=== PATIENT | male | born 1965 | race Caucasian/White ===

== ENCOUNTER 2017-12-27 08:57 | Day surgery (SDC) | payer MEDICAID ==
[~2017-12-27 08:57] MED LIST: METO-395 PO; ZOLP10TA5 PO
== END 2017-12-27 11:07 | disposition home or self-care (01) ==
LOC: WOUND CARE 08:57
PROVIDERS: ATTEND Surgery
DX: L97.512 Non-pressure chronic ulcer of other part of right foot with fat layer exposed (principal); G62.9 Polyneuropathy, unspecified; F41.9 Anxiety disorder, unspecified; I10 Essential (primary) hypertension; E78.5 Hyperlipidemia, unspecified; F32.9 Major depressive disorder, single episode, unspecified; Z72.89 Other problems related to lifestyle; Z89.411 Acquired absence of right great toe
CPT/HCPCS: 11042; 87070; 87075; 87077; 87102; 87186; A6021; A6206; A6209; A6446; L3260

== ENCOUNTER 2018-01-03 09:52 | Day surgery (SDC) | payer MEDICAID ==
[~2018-01-03 09:52] MED LIST changes: -ZOLP10TA5 PO
[2018-01-03] MEDS ORDERED: LIDOcaine/PRILOcaine 5gm cream TP ONE (10:34)
== END 2018-01-03 12:36 | disposition home or self-care (01) ==
LOC: WOUND CARE 09:52
PROVIDERS: ATTEND Surgery
DX: L97.512 Non-pressure chronic ulcer of other part of right foot with fat layer exposed (principal); G62.9 Polyneuropathy, unspecified; F41.9 Anxiety disorder, unspecified; I10 Essential (primary) hypertension; E78.5 Hyperlipidemia, unspecified; F32.9 Major depressive disorder, single episode, unspecified; Z89.411 Acquired absence of right great toe
CPT/HCPCS: 11043; A6021; A6206; A6209; A6446

== ENCOUNTER 2018-01-08 09:54 | Day surgery (SDC) | payer MEDICAID ==
[2018-01-08] MEDS ORDERED: LIDOcaine/PRILOcaine 5gm cream TP ONE (11:12)
[2018-01-08] MEDS ORDERED: ACET-1059 PO (12:52)
[2018-01-08] MEDS ORDERED: CLIN150C2 PO (12:52)
== END 2018-01-08 12:33 | disposition home or self-care (01) ==
LOC: WOUND CARE 09:54
PROVIDERS: ATTEND Surgery
DX: L97.513 Non-pressure chronic ulcer of other part of right foot with necrosis of muscle (principal); G62.9 Polyneuropathy, unspecified; F41.9 Anxiety disorder, unspecified; I10 Essential (primary) hypertension; E78.5 Hyperlipidemia, unspecified; F32.9 Major depressive disorder, single episode, unspecified; Z89.411 Acquired absence of right great toe
CPT/HCPCS: 11043; A6206; A6209; A6446

== ENCOUNTER 2018-01-11 08:55 | Day surgery (SDC) | payer MEDICAID ==
[~2018-01-11 08:55] MED LIST changes: +ACET-1059 PO; +CLIN150C2 PO
[2018-01-11] MEDS ORDERED: LIDOcaine/PRILOcaine 5gm cream TP ONE (10:52)
== END 2018-01-11 12:29 | disposition home or self-care (01) ==
LOC: NM 08:55
PROVIDERS: ATTEND Surgery
DX: L97.513 Non-pressure chronic ulcer of other part of right foot with necrosis of muscle (principal); G62.9 Polyneuropathy, unspecified; I10 Essential (primary) hypertension; E78.5 Hyperlipidemia, unspecified; F41.9 Anxiety disorder, unspecified; F32.9 Major depressive disorder, single episode, unspecified; Z89.411 Acquired absence of right great toe
CPT/HCPCS: 11042; A6021; A6206; A6209; A6446

== ENCOUNTER 2018-01-15 09:50 | Day surgery (SDC) | payer MEDICAID | END 2018-01-15 13:05 | disposition home or self-care (01) | LOC: WOUND CARE 09:50 | PROVIDERS: ATTEND Surgery | DX: L97.513 Non-pressure chronic ulcer of other part of right foot with necrosis of muscle (principal); G62.9 Polyneuropathy, unspecified; F41.9 Anxiety disorder, unspecified; I10 Essential (primary) hypertension; E78.5 Hyperlipidemia, unspecified; F32.9 Major depressive disorder, single episode, unspecified; Z89.411 Acquired absence of right great toe | CPT/HCPCS: 11042; A6206; A6212; A6446 ==

== ENCOUNTER 2018-01-18 09:54 | Day surgery (SDC) | payer MEDICAID | END 2018-01-18 12:04 | disposition home or self-care (01) | LOC: WOUND CARE 09:54 | PROVIDERS: ATTEND Surgery | DX: L97.513 Non-pressure chronic ulcer of other part of right foot with necrosis of muscle (principal); G62.9 Polyneuropathy, unspecified; F41.9 Anxiety disorder, unspecified; I10 Essential (primary) hypertension; E78.5 Hyperlipidemia, unspecified; F32.9 Major depressive disorder, single episode, unspecified; Z89.411 Acquired absence of right great toe | CPT/HCPCS: 11044; A6021; A6206; A6209; A6446 ==

== ENCOUNTER 2018-01-23 09:54 | Day surgery (SDC) | payer MEDICAID ==
[~2018-01-23 09:54] MED LIST changes: -CLIN150C2 PO
[2018-01-23] MEDS ORDERED: LIDOcaine/PRILOcaine 5gm cream TP ONE (11:11)
== END 2018-01-23 12:48 | disposition home or self-care (01) ==
LOC: WOUND CARE 09:54
PROVIDERS: ATTEND Surgery
DX: L97.513 Non-pressure chronic ulcer of other part of right foot with necrosis of muscle (principal); G62.9 Polyneuropathy, unspecified; F41.9 Anxiety disorder, unspecified; I10 Essential (primary) hypertension; E78.5 Hyperlipidemia, unspecified; F32.9 Major depressive disorder, single episode, unspecified; Z89.411 Acquired absence of right great toe
CPT/HCPCS: 11042; 73630; A6021; A6206; A6209; A6446

== ENCOUNTER 2018-02-02 08:45 | Outpatient (CLI) | payer MEDICAID | END 2018-02-02 10:40 | disposition home or self-care (01) | LOC: WOUND CARE 08:45 → EDSTATUS 09:30 → WOUND CARE 10:40 | PROVIDERS: ATTEND Surgery | DX: L97.513 Non-pressure chronic ulcer of other part of right foot with necrosis of muscle (principal); G62.9 Polyneuropathy, unspecified; I10 Essential (primary) hypertension; E78.5 Hyperlipidemia, unspecified; F41.9 Anxiety disorder, unspecified; F32.9 Major depressive disorder, single episode, unspecified; Z89.411 Acquired absence of right great toe | CPT/HCPCS: 99211; A6209; A6021; A6206; A6446 ==

== ENCOUNTER 2018-02-09 09:15 | Day surgery (SDC) | payer MEDICAID ==
[2018-02-09] MEDS ORDERED: LIDOcaine/PRILOcaine 5gm cream TP ONE (09:46)
== END 2018-02-09 10:29 | disposition home or self-care (01) ==
LOC: WOUND CARE 09:15
PROVIDERS: ATTEND Surgery
DX: L97.513 Non-pressure chronic ulcer of other part of right foot with necrosis of muscle (principal); G62.9 Polyneuropathy, unspecified; I10 Essential (primary) hypertension; E78.5 Hyperlipidemia, unspecified; F41.9 Anxiety disorder, unspecified; F32.9 Major depressive disorder, single episode, unspecified; Z89.411 Acquired absence of right great toe
CPT/HCPCS: A6021; A6206; A6446

== ENCOUNTER 2018-02-16 09:27 | Day surgery (SDC) | payer MEDICAID ==
[2018-02-16] MEDS ORDERED: LIDOcaine/PRILOcaine 5gm cream TP ONE (10:08)
== END 2018-02-16 10:53 | disposition home or self-care (01) ==
LOC: WOUND CARE 09:27
PROVIDERS: ATTEND Surgery
DX: L97.513 Non-pressure chronic ulcer of other part of right foot with necrosis of muscle (principal); G62.9 Polyneuropathy, unspecified; I10 Essential (primary) hypertension; E78.5 Hyperlipidemia, unspecified; F41.9 Anxiety disorder, unspecified; F32.9 Major depressive disorder, single episode, unspecified; Z89.411 Acquired absence of right great toe
CPT/HCPCS: 15275; A6209; A6222; Q4131; 17250; 97597; A6250; A6446

== ENCOUNTER 2018-02-21 09:10 | Outpatient (CLI) | payer MEDICAID | END 2018-02-21 10:15 | disposition home or self-care (01) | LOC: WOUND CARE 09:10 → EDSTATUS 09:30 → WOUND CARE 10:15 | PROVIDERS: ATTEND Surgery | DX: L97.513 Non-pressure chronic ulcer of other part of right foot with necrosis of muscle (principal); G62.9 Polyneuropathy, unspecified; I10 Essential (primary) hypertension; E78.5 Hyperlipidemia, unspecified; F41.9 Anxiety disorder, unspecified; F32.9 Major depressive disorder, single episode, unspecified; Z89.411 Acquired absence of right great toe | CPT/HCPCS: 99215; A6209; A6222; A6446 ==

== ENCOUNTER 2018-02-28 09:25 | Day surgery (SDC) | payer MEDICAID ==
[2018-02-28] MEDS ORDERED: LIDOcaine/PRILOcaine 5gm cream TP ONE (09:59)
== END 2018-02-28 11:45 | disposition home or self-care (01) ==
LOC: WOUND CARE 09:25
PROVIDERS: ATTEND Surgery
DX: L97.513 Non-pressure chronic ulcer of other part of right foot with necrosis of muscle (principal); G62.9 Polyneuropathy, unspecified; I10 Essential (primary) hypertension; E78.5 Hyperlipidemia, unspecified; F41.9 Anxiety disorder, unspecified; F32.9 Major depressive disorder, single episode, unspecified; Z89.411 Acquired absence of right great toe
CPT/HCPCS: 15275; A6209; A6222; Q4131; A6250; A6446

== ENCOUNTER 2018-03-07 09:18 | Day surgery (SDC) | payer MEDICAID ==
[2018-03-07] MEDS ORDERED: LIDOcaine/PRILOcaine 5gm cream TP ONE (10:41)
--- NOTE | 2018-03-07 12:33 | NUR ---
Patient ambulated safely into [facility]. Patient admitted to outpatient wound care clinic for follow-up visit with physician. Dressing removed, wound cleansed and Emla cream applied per order. Patient assessed for changes in conditions, medications and medical history. Patient showed no s/s of distress at time of assessment. 1050- at bedside accompanied by RN. Wound assessed and debrided with a curette. Minimal bleeding noted. Hemostasis achieved with applied pressure. Patient tolerated procedure well. Dr. Gabriel applied an Epicord to wound. Dressings applied per physician orders. Patient instructed on the signs and symptoms of infection and to call the Wound Center if any occur or to go to the ED if we are closed: Increased pain in wound Increase in drainage from the wound Redness in the skin surrounding the wound Bleeding from the wound Temperature of 101 or greater Patient instructed that the weight of their body puts a large amount of pressure on their wounds. This pressure keeps the new tissue from growing and inhibits new blood vessels from forming. Explained that, if they continue to bear weight on a body part that has a wound, the time it takes to heal the wound increases, the wound may get worse or the wound may not heal at all. Patient verbalized understanding of all instructions and POC. Patient instructed to return to wound care clinic for scheduled follow-up appointment with physician. Patient left in stable condition with no complaints. Addendum: 03/07/18 at 1236 by Rachael Hamm RN Amended: Links added.
[2018-05-14] MEDS ORDERED: METO-384 PO (10:35)
== END 2018-03-07 11:26 | disposition home or self-care (01) ==
LOC: WOUND CARE 09:18
PROVIDERS: ATTEND Surgery
DX: L97.513 Non-pressure chronic ulcer of other part of right foot with necrosis of muscle (principal); G62.9 Polyneuropathy, unspecified; I10 Essential (primary) hypertension; E78.5 Hyperlipidemia, unspecified; F41.9 Anxiety disorder, unspecified; F32.9 Major depressive disorder, single episode, unspecified; Z89.411 Acquired absence of right great toe
CPT/HCPCS: 15275; A6209; A6222; Q4131; A6250; A6446

== ENCOUNTER 2018-03-16 09:05 | Outpatient (CLI) | payer MEDICAID | END 2018-03-16 10:09 | disposition home or self-care (01) | LOC: WOUND CARE 09:05 → EDSTATUS 09:30 → WOUND CARE 10:09 | PROVIDERS: ATTEND Surgery | DX: L97.513 Non-pressure chronic ulcer of other part of right foot with necrosis of muscle (principal); G62.9 Polyneuropathy, unspecified; I10 Essential (primary) hypertension; E78.5 Hyperlipidemia, unspecified; F41.9 Anxiety disorder, unspecified; F32.9 Major depressive disorder, single episode, unspecified; Z89.411 Acquired absence of right great toe | CPT/HCPCS: 99211; A6209; A6222; A6446; G0463 ==

== ENCOUNTER 2018-03-22 09:08 | Day surgery (SDC) | payer MEDICAID | END 2018-03-22 11:47 | disposition home or self-care (01) | LOC: WOUND CARE 09:08 | PROVIDERS: ATTEND Surgery | DX: L97.513 Non-pressure chronic ulcer of other part of right foot with necrosis of muscle (principal); G62.9 Polyneuropathy, unspecified; I10 Essential (primary) hypertension; E78.5 Hyperlipidemia, unspecified; F41.9 Anxiety disorder, unspecified; F32.9 Major depressive disorder, single episode, unspecified; Z89.411 Acquired absence of right great toe | CPT/HCPCS: 15275; A6209; A6222; Q4131; A6250; A6446 ==

== ENCOUNTER 2018-03-29 09:29 | Day surgery (SDC) | payer MEDICAID | END 2018-03-29 12:00 | disposition home or self-care (01) | LOC: WOUND CARE 09:29 | PROVIDERS: ATTEND Surgery | DX: L97.513 Non-pressure chronic ulcer of other part of right foot with necrosis of muscle (principal); G62.9 Polyneuropathy, unspecified; I10 Essential (primary) hypertension; E78.5 Hyperlipidemia, unspecified; F41.9 Anxiety disorder, unspecified; F32.9 Major depressive disorder, single episode, unspecified; Z89.411 Acquired absence of right great toe | CPT/HCPCS: 15275; A6209; A6222; Q4131; A6250; A6446 ==

== ENCOUNTER 2018-04-05 09:25 | Outpatient (CLI) | payer MEDICAID ==
--- NOTE | 2018-04-05 15:27 | NUR ---
Patient ambulated independently from [facility] and was admitted to outpatient wound care for physician visit with Georges Gabriel MD. Dressing removed, wound cleansed and lidocaine applied per order. Patient assessed for changes in conditions, medications and medical history. Dr. Gabriel at bedside accompanied by RN. Wound assessed, time out performed by MD/RN. Wound debrided as detailed in the physician progress/procedure note. Plan of care discussed with patient. Dressings placed per MD orders. Patient instructed on the signs and symptoms of infection and to call the Wound Center if any occur or to go to the ED if we are closed: Increased pain in wound Increase in drainage from the wound Redness in the skin surrounding the wound Bleeding from the wound Temperature of 101 or greater Patient instructed that the weight of their body puts a large amount of pressure on their wounds. This pressure keeps the new tissue from growing and inhibits new blood vessels from forming. Explained that, if they continue to bear weight on a body part that has a wound, the time it takes to heal the wound increases, the wound may get worse or the wound may not heal at all. Patient verbalized understanding of all discharge instructions and plan of care and ambulated independently out to [facility] in stable condition with no sign or symptom of distress at time of discharge. Addendum: 04/05/18 at 1529 by Rachael Hamm RN Amended: Links added.
== END 2018-04-05 11:07 | disposition home or self-care (01) ==
LOC: WOUND CARE 09:25 → EDSTATUS 09:30 → WOUND CARE 11:07
PROVIDERS: ATTEND Surgery
DX: L97.513 Non-pressure chronic ulcer of other part of right foot with necrosis of muscle (principal); G62.9 Polyneuropathy, unspecified; I10 Essential (primary) hypertension; E78.5 Hyperlipidemia, unspecified; F41.9 Anxiety disorder, unspecified; F32.9 Major depressive disorder, single episode, unspecified; Z89.411 Acquired absence of right great toe
CPT/HCPCS: A6209; G0463; A6206; A6446

== ENCOUNTER 2018-04-12 09:27 | Day surgery (SDC) | payer MEDICAID ==
[2018-04-12] MEDS ORDERED: LIDOcaine/PRILOcaine 5gm cream TP ONE (09:51)
--- NOTE | 2018-04-12 11:00 | NUR ---
Patient ambulated independently from [facility] in [facility] loading [facility] and was admitted to outpatient wound care for physician visit with Georges Gabriel MD. Dressing removed, wound cleansed and Emla cream applied per order. Patient assessed for changes in conditions, medications and medical history. 1020 - Dr. Gabriel at bedside accompanied by RN. Wound assessed, time out performed by MD/RN. Wound debrided as detailed in the physician progress/procedure note. Plan of care discussed with patient. Dressings placed per MD orders. Patient instructed on the signs and symptoms of infection and to call the Wound Center if any occur or to go to the ED if we are closed: Increased pain in wound Increase in drainage from the wound Redness in the skin surrounding the wound Bleeding from the wound Temperature of 101 or greater Patient instructed that the weight of their body puts a large amount of pressure on their wounds. This pressure keeps the new tissue from growing and inhibits new blood vessels from forming. Explained that, if they continue to bear weight on a body part that has a wound, the time it takes to heal the wound increases, the wound may get worse or the wound may not heal at all. Patient verbalized understanding of all discharge instructions and plan of care and ambulated independently out to [facility] wearing off loading shoe in stable condition with no sign or symptom of distress at time of discharge.
== END 2018-04-12 11:29 | disposition home or self-care (01) ==
LOC: WOUND CARE 09:27
PROVIDERS: ATTEND Surgery
DX: L97.513 Non-pressure chronic ulcer of other part of right foot with necrosis of muscle (principal); G62.9 Polyneuropathy, unspecified; I10 Essential (primary) hypertension; E78.5 Hyperlipidemia, unspecified; F41.9 Anxiety disorder, unspecified; F32.9 Major depressive disorder, single episode, unspecified; Z89.411 Acquired absence of right great toe

== ENCOUNTER 2018-04-19 09:22 | Day surgery (SDC) | payer MEDICAID ==
[2018-04-19] MEDS ORDERED: LIDOcaine/PRILOcaine 5gm cream TP ONE (10:01)
--- NOTE | 2018-04-19 14:30 | NUR ---
Patient ambulated safely into [facility]. Patient admitted to outpatient wound care clinic for follow-up visit with physician. Dressing removed, wound cleansed and Emla cream applied per order. Patient assessed for changes in conditions, medications and medical history. Patient showed no s/s of distress at time of assessment. 1040- at bedside accompanied by RN. Wound assessed and debrided with a curette and scissors. Minimal bleeding noted. Hemostasis achieved with applied pressure. Patient tolerated procedure well. applied an Epicord to wound. Dressings applied per physician orders. Patient instructed on the signs and symptoms of infection and to call the Wound Center if any occur or to go to the ED if we are closed: Increased pain in wound Increase in drainage from the wound Redness in the skin surrounding the wound Bleeding from the wound Temperature of 101 or greater Patient instructed that the weight of their body puts a large amount of pressure on their wounds. This pressure keeps the new tissue from growing and inhibits new blood vessels from forming. Explained that, if they continue to bear weight on a body part that has a wound, the time it takes to heal the wound increases, the wound may get worse or the wound may not heal at all. Patient verbalized understanding of all instructions and POC. Patient instructed to return to wound care clinic for scheduled follow-up appointment with physician. Patient left in stable condition with no complaints. Addendum: 04/19/18 at 1435 by Rachael Hamm RN Amended: Links added.
== END 2018-04-19 11:09 | disposition home or self-care (01) ==
LOC: WOUND CARE 09:22
PROVIDERS: ATTEND Surgery
DX: L97.513 Non-pressure chronic ulcer of other part of right foot with necrosis of muscle (principal); G62.9 Polyneuropathy, unspecified; I10 Essential (primary) hypertension; E78.5 Hyperlipidemia, unspecified; F41.9 Anxiety disorder, unspecified; F32.9 Major depressive disorder, single episode, unspecified; Z89.411 Acquired absence of right great toe
CPT/HCPCS: 15275; A6209; Q4187; A6250; A6446

== ENCOUNTER 2018-04-26 09:25 | Day surgery (SDC) | payer MEDICAID ==
[2018-04-26] MEDS ORDERED: LIDOcaine 2% 5ml jelly ONE (10:50)
--- NOTE | 2018-04-26 11:30 | NUR ---
Patient ambulated independently from [facility] and was admitted to outpatient wound care for physician visit with Georges Gabriel MD. Dressing removed, wound cleansed and lidocaine applied per order. Patient assessed for changes in conditions, medications and medical history. 1055 - Dr. Gabriel at bedside accompanied by RN. Wound assessed by MD. Plan of care discussed with patient. Dressings placed per MD orders. Patient instructed on the signs and symptoms of infection and to call the Wound Center if any occur or to go to the ED if we are closed: Increased pain in wound Increase in drainage from the wound Redness in the skin surrounding the wound Bleeding from the wound Temperature of 101 or greater Patient instructed that the weight of their body puts a large amount of pressure on their wounds. This pressure keeps the new tissue from growing and inhibits new blood vessels from forming. Explained that, if they continue to bear weight on a body part that has a wound, the time it takes to heal the wound increases, the wound may get worse or the wound may not heal at all. Patient verbalized understanding of all discharge instructions and plan of care and ambulated independently out to [facility] in stable condition with no sign or symptom of distress at time of discharge.
== END 2018-04-26 11:12 | disposition home or self-care (01) ==
LOC: WOUND CARE 09:25
PROVIDERS: ATTEND Surgery
DX: L97.513 Non-pressure chronic ulcer of other part of right foot with necrosis of muscle (principal); G62.9 Polyneuropathy, unspecified; I10 Essential (primary) hypertension; E78.5 Hyperlipidemia, unspecified; F41.9 Anxiety disorder, unspecified; F32.9 Major depressive disorder, single episode, unspecified; Z89.411 Acquired absence of right great toe
CPT/HCPCS: A6209; A6222; G0463; A6446

== ENCOUNTER 2018-05-03 09:20 | Day surgery (SDC) | payer MEDICAID ==
[2018-05-03] MEDS ORDERED: LIDOcaine 2% 5ml jelly ONE (09:48)
--- NOTE | 2018-05-03 14:25 | NUR ---
Patient ambulated independently from [facility] and was admitted to outpatient wound care for physician visit with Georges Gabriel MD. Dressing removed, wound cleansed and lidocaine applied per order. Patient assessed for changes in conditions, medications and medical history. Dr. Gabriel at bedside accompanied by RN. Wound assessed, time out performed by MD/RN. Wound debrided as detailed in the physician progress/procedure note. Plan of care discussed with patient. Dressings placed per MD orders. Patient instructed on the signs and symptoms of infection and to call the Wound Center if any occur or to go to the ED if we are closed: Increased pain in wound Increase in drainage from the wound Redness in the skin surrounding the wound Bleeding from the wound Temperature of 101 or greater Patient instructed that the weight of their body puts a large amount of pressure on their wounds. This pressure keeps the new tissue from growing and inhibits new blood vessels from forming. Explained that, if they continue to bear weight on a body part that has a wound, the time it takes to heal the wound increases, the wound may get worse or the wound may not heal at all. Patient verbalized understanding of all discharge instructions and plan of care and ambulated independently out to [facility] in stable condition with no sign or symptom of distress at time of discharge. Addendum: 05/03/18 at 1433 by Rachael Hamm RN Amended: Links added.
== END 2018-05-03 11:20 | disposition home or self-care (01) ==
LOC: WOUND CARE 09:20
PROVIDERS: ATTEND Surgery
DX: L97.513 Non-pressure chronic ulcer of other part of right foot with necrosis of muscle (principal); G62.9 Polyneuropathy, unspecified; I10 Essential (primary) hypertension; E78.5 Hyperlipidemia, unspecified; F41.9 Anxiety disorder, unspecified; F32.9 Major depressive disorder, single episode, unspecified; Z89.411 Acquired absence of right great toe
CPT/HCPCS: A6021; A6206; A6212; A6446

== ENCOUNTER 2018-05-10 08:35 | Day surgery (SDC) | payer MEDICAID ==
[2018-05-10] MEDS ORDERED: LIDOcaine 2% 5ml jelly ONE (09:36)
--- NOTE | 2018-05-10 15:29 | NUR ---
Patient ambulated independently from [facility] and was admitted to outpatient wound care for physician visit with Georges Gabriel MD. Dressing removed, wound cleansed and lidocaine applied per order. Patient assessed for changes in conditions, medications and medical history. Dr. Gabriel at bedside accompanied by RN. Wound assessed, time out performed by MD/RN. Wound debrided as detailed in the physician progress/procedure note. Plan of care discussed with patient. Dressings placed per MD orders. Patient instructed on the signs and symptoms of infection and to call the Wound Center if any occur or to go to the ED if we are closed: Increased pain in wound Increase in drainage from the wound Redness in the skin surrounding the wound Bleeding from the wound Temperature of 101 or greater Patient instructed that the weight of their body puts a large amount of pressure on their wounds. This pressure keeps the new tissue from growing and inhibits new blood vessels from forming. Explained that, if they continue to bear weight on a body part that has a wound, the time it takes to heal the wound increases, the wound may get worse or the wound may not heal at all. Patient verbalized understanding of all discharge instructions and plan of care and ambulated independently out to [facility] in stable condition with no sign or symptom of distress at time of discharge. Addendum: 05/10/18 at 1532 by Rachael Hamm RN Amended: Links added.
[2018-05-14] MEDS ORDERED: METO-384 PO (10:35)
== END 2018-05-10 11:00 | disposition home or self-care (01) ==
LOC: WOUND CARE 08:35
PROVIDERS: ATTEND Surgery
DX: L97.513 Non-pressure chronic ulcer of other part of right foot with necrosis of muscle (principal); G62.9 Polyneuropathy, unspecified; I10 Essential (primary) hypertension; E78.5 Hyperlipidemia, unspecified; F41.9 Anxiety disorder, unspecified; F32.9 Major depressive disorder, single episode, unspecified; Z89.411 Acquired absence of right great toe
CPT/HCPCS: 11042; A6209; A6021; A6206

== ENCOUNTER 2018-05-15 10:00 | Day surgery (SDC) | payer MEDICAID ==
[2018-05-10 13:25] LABS: BASOPHILS % (AUTO) 0.7 % (0-1); EOSINOPHILS % (AUTO) 0.7 % (0-6); LYMPHOCYTES # (AUTO) 1.6 X10'3 (1.1-4.8); LYMPHOCYTES % (AUTO) 29.6 % (21-51); MEAN CORPUSCULAR HEMOGLOBIN 31.4 PG (27.0-31.0); MEAN CORPUSCULAR HGB CONC 33.7 g/dL (33.0-36.5); MEAN CORPUSCULAR VOLUME 93.2 FL (78-98); MEAN PLATELET VOLUME 6.6 FL (7.4-10.4); MONOCYTES # (AUTO) 0.3 X10'3 (0-0.9); MONOCYTES % (AUTO) 5.2 % (2-12); NEUTROPHILS # (AUTO) 3.6 X10'3 (1.8-7.7); NEUTROPHILS % (AUTO) 63.8 % (42-75); PRE OP HEMATOCRIT 40.9 % (42.0-52.0); PRE OP HEMOGLOBIN 13.8 g/dL (14.0-17.9); PRE OP PLATELET COUNT 210 X10'3 (140-440); RED BLOOD COUNT 4.39 X10'6 (4.70-6.10); RED CELL DISTRIBUTION WIDTH 14.7 % (11.5-14.5)
[2018-05-10 13:48] LABS: ALBUMIN 3.4 G/DL (3.4-5.0); ALBUMIN/GLOBULIN RATIO 0.7 (1.1-1.5); ALKALINE PHOSPHATASE 105 IU/L (46-116); BLOOD UREA NITROGEN 8 MG/DL (7-18); BUN/CREATININE RATIO 6.8 (5.4-32.0); CALCIUM 8.7 MG/DL (8.5-10.1); CHLORIDE 108 MMOL/L (99-107); CREATININE 1.18 MG/DL (0.60-1.10); PRE OP ALT 23 U/L (30-65); PRE OP ANION GAP 11 (8-16); PRE OP AST 40 U/L (10-37); PRE OP BILIRUB, TOTAL 0.5 MG/DL (0.0-1.0); PRE OP GLUCOSE 100 MG/DL (70-104); PRE OP POTASSIUM 4.5 MMOL/L (3.4-5.1); PRE OP SODIUM 146 MMOL/L (135-145); TOTAL CARBON DIOXIDE 26.8 MMOL/L (24-32); TOTAL PROTEIN 8.1 G/DL (6.4-8.2); eGFR 65 ML/MIN
[2018-05-10 13:49] LABS: CLARITY,URINE CLEAR (Clear); COLOR,URINE YELLOW (Yellow); GLUCOSE, URINE NEGATIVE (Neg); KETONES,URINE NEGATIVE (Neg); LEUKOCYTE ESTERASE ,URINE NEGATIVE (Neg); NITRITES, URINE NEGATIVE (Neg); OCCULT BLOOD,URINE TRACE-LYSED (Neg); PROTEIN,URINE NEGATIVE (Neg); UROBILINOGEN,URINE 0.2 E.U/dL (0.2-1.0)
[2018-05-10 13:51] LABS: UA COLLECTION TYPE CLN CATCH MIDSTREAM
[2018-05-10 13:56] LABS: HYALINE CASTS 0-3 /LPF (NEGATIVE); MUCUS STRANDS FEW /LPF (Neg); SQUAMOUS EPITHELIAL CELL,UR FEW /LPF (FEW)
[2018-05-10 13:57] LABS: BACTERIA,URINE FEW /HPF (Neg); RBC,URINE 0-2 /HPF (0-2); WBC,URINE 0-4 /HPF (0-4)
[~2018-05-15] VITALS: Ht 193 cm; Wt 75.0 kg
[2018-05-15] VITALS (12 sets, daily range): BP systolic 100–139; BP diastolic 63–97
[~2018-05-15 10:00] MED LIST changes: -ACET-1059 PO; +DOCUMENT DATE & TIME OF BETA-BLOCKER PO ONE; +METO-384 PO; -METO-395 PO; +cefazolin/dext.iso 2gm/100ml 50 ML IV ONE; +famotidine 20mg tablet PO ONE; +ringers solution, lacted 1,000 ML IV SCH
[2018-05-15] MEDS ORDERED: povidone-iodine 10% topical ointment 28.4gm TP ONE (11:31)
[2018-05-15] MEDS ORDERED: BUPIVAcaine/PF 2.5mg/ml (0.25%) 10ml vial ONE (11:31)
[2018-05-15] MEDS ORDERED: methylene blue (5mg/ml) 50mg/10ml ampul IV ONE (11:32)
[2018-05-15] MEDS ORDERED: ROPIVAcaine 0.5% (5mg/ml) 30ml vial ONE (11:44)
[2018-05-15] MEDS ORDERED: MIDAZolam 5mg/5ml vial ONE ×2 (11:46→12:04)
[2018-05-15] MEDS ORDERED: fentaNYL/PF 50MCG/1 ML 2ML syringe ONE (11:46)
[2018-05-15] MEDS ORDERED: ringers solution, lacted 1,000 ML IV SCH (12:12)
[2018-05-15] MEDS ORDERED: hydrALAZINE 20mg/ml inj. IV PRN (12:15)
[2018-05-15] MEDS ORDERED: ondansetron/PF 4mg/2ml inj IV PRN (12:15)
[2018-05-15] MEDS ORDERED: morphine 4 MG/ML inj SYRINge IV PRN ×2 (12:15)
[2018-05-15] MEDS ORDERED: labetalol 20mg/4ml (5mg/ml) syringe IV PRN (12:15)
[2018-05-15] MEDS ORDERED: fentaNYL/PF 50MCG/1 ML 2ML syringe IV PRN ×2 (12:15)
[2018-05-15] MEDS ORDERED: propofol inj 20 ML IV ONE (12:24)
[2018-05-15] MEDS ORDERED: LIDOcaine 2% (20mg/ml) 5ml vial ONE (12:24)
--- NOTE | 2018-05-15 13:00 | NUR ---
Received from OR via [facility], accompanied by Anesthesiologist DR GROVES and report given by Anesthesiolgist. PT DROWSY BUT APPROPRIATE, DENIES PAIN, RIGHT FOOT W/DRSG AND ABDULLAHI WRAP COVERING FOOT AND INCISION, CDI. Addendum: 05/15/18 at 1315 by Halie Umaña RN Amended: Links added.
--- NOTE | 2018-05-15 14:45 | NUR ---
PT D/C INSTRUCTIONS GONE OVER W/PT, PT VERBALIZES UNDERSTANDING, COPY SENT W/PT, APPOINTMENT MADE FOR F/U W/WOUND CARE CLINIC THIS MONDAY, PT WILL CALL AND MAKE APPOINTMENT W/DR STINSON FOR 1 WEEK OUT. PTS SHELLEYG BECAME BLOODY AFTER PT UP TO AMBULATE TO BATHROOM FOR VOID, DR STINSON IN PACU, REDRESSED DEON, NOW CDI. PT D/CD TO HOME W/FAMILY MEMBER. Addendum: 05/15/18 at 1511 by Halie Umaña RN Amended: Links added.
== END 2018-05-15 14:45 | disposition home or self-care (01) ==
LOC: PAS 10:00
PROVIDERS: ATTEND Surgery
DX: T81.89XA Other complications of procedures, not elsewhere classified, initial encounter (principal); M86.8X7 Other osteomyelitis, ankle and foot; I10 Essential (primary) hypertension; G62.9 Polyneuropathy, unspecified; Z88.1 Allergy status to other antibiotic agents; F41.8 Other specified anxiety disorders; J21.9 Acute bronchiolitis, unspecified; Z72.89 Other problems related to lifestyle; Y83.8 Other surgical procedures as the cause of abnormal reaction of the patient, or of later complication, without mention of misadventure at the time of the procedure
CPT/HCPCS: 28810; 36415; 80053; 81001; 82948; 85025; 93005; A6222; A6266; A6449; J0690; J2001; J2250; J2704; J3010; J3490; A6446; A7000; J2795; J7120

== ENCOUNTER 2018-05-18 09:20 | Outpatient (CLI) | payer MEDICAID ==
[~2018-05-18 09:20] MED LIST changes: -DOCUMENT DATE & TIME OF BETA-BLOCKER PO ONE; -cefazolin/dext.iso 2gm/100ml 50 ML IV ONE; -famotidine 20mg tablet PO ONE; -ringers solution, lacted 1,000 ML IV SCH
[2018-05-18] MEDS ORDERED: ACET-1059 (14:15)
--- NOTE | 2018-05-18 14:15 | NUR ---
Patient ambulated independently from [facility] with crutches. Patient admitted to outpatient wound care for physician visit with Georges Gabriel MD. Dressing removed, wound cleansed and lidocaine applied per order. Patient assessed for changes in conditions, medications and medical history. Dr. Gabriel at bedside accompanied by RN. Wound assessed and no debridement was done. Plan of care discussed with patient. Dressings placed per MD orders. Patient instructed on the signs and symptoms of infection and to call the Wound Center if any occur or to go to the ED if we are closed: Increased pain in wound Increase in drainage from the wound Redness in the skin surrounding the wound Bleeding from the wound Temperature of 101 or greater Patient instructed that the weight of their body puts a large amount of pressure on their wounds. This pressure keeps the new tissue from growing and inhibits new blood vessels from forming. Explained that, if they continue to bear weight on a body part that has a wound, the time it takes to heal the wound increases, the wound may get worse or the wound may not heal at all. Patient verbalized understanding of all discharge instructions and plan of care and ambulated independently out to [facility] in stable condition with no sign or symptom of distress at time of discharge. Addendum: 05/18/18 at 1419 by Rachael Hamm RN Amended: Links added.
== END 2018-05-18 10:35 | disposition home or self-care (01) ==
LOC: WOUND CARE 09:20 → EDSTATUS 09:30 → WOUND CARE 10:35
PROVIDERS: ATTEND Surgery
DX: L97.513 Non-pressure chronic ulcer of other part of right foot with necrosis of muscle (principal); G62.9 Polyneuropathy, unspecified; I10 Essential (primary) hypertension; E78.5 Hyperlipidemia, unspecified; F41.9 Anxiety disorder, unspecified; F32.9 Major depressive disorder, single episode, unspecified; Z89.411 Acquired absence of right great toe
CPT/HCPCS: A6266; G0463

== ENCOUNTER 2018-05-21 09:19 | Outpatient (CLI) | payer MEDICAID ==
[~2018-05-21 09:19] MED LIST changes: +ACET-1059
[2018-05-21] MEDS ORDERED: LIDOcaine/PRILOcaine 5gm cream TP ONE (09:52)
--- NOTE | 2018-05-21 11:00 | NUR ---
Patient ambulated with crutches from [facility] and was admitted to outpatient wound care for physician visit with Georges Gabriel MD. Dressing removed, wound cleansed and Emla cream applied per order. Patient assessed for changes in conditions, medications and medical history. 1040 - Dr. Gabriel at bedside accompanied by RN. Wound assessed by MD; orders written. Plan of care discussed with patient. Dressings placed per MD orders. Patient instructed on the signs and symptoms of infection and to call the Wound Center if any occur or to go to the ED if we are closed: Increased pain in wound Increase in drainage from the wound Redness in the skin surrounding the wound Bleeding from the wound Temperature of 101 or greater Patient instructed that the weight of their body puts a large amount of pressure on their wounds. This pressure keeps the new tissue from growing and inhibits new blood vessels from forming. Explained that, if they continue to bear weight on a body part that has a wound, the time it takes to heal the wound increases, the wound may get worse or the wound may not heal at all. Patient verbalized understanding of all discharge instructions and plan of care and ambulated independently out to [facility] in stable condition with no sign or symptom of distress at time of discharge. Addendum: 05/21/18 at 1432 by Evelyn Hardy RN Patient used crutches to walk in and out of clinic and is wearing off loading shoe.
== END 2018-05-21 10:21 | disposition home or self-care (01) ==
LOC: WOUND CARE 09:19 → EDSTATUS 09:30 → WOUND CARE 10:21
PROVIDERS: ATTEND Surgery
DX: T81.89XA Other complications of procedures, not elsewhere classified, initial encounter (principal); L97.514 Non-pressure chronic ulcer of other part of right foot with necrosis of bone; M86.8X7 Other osteomyelitis, ankle and foot; G62.9 Polyneuropathy, unspecified; I10 Essential (primary) hypertension; E78.5 Hyperlipidemia, unspecified; F41.9 Anxiety disorder, unspecified; F32.9 Major depressive disorder, single episode, unspecified; Z89.411 Acquired absence of right great toe; Y83.8 Other surgical procedures as the cause of abnormal reaction of the patient, or of later complication, without mention of misadventure at the time of the procedure
CPT/HCPCS: A6266; G0463; A6446

== ENCOUNTER 2018-05-24 09:18 | Outpatient (CLI) | payer MEDICAID ==
--- NOTE | 2018-05-24 11:30 | NUR ---
Patient ambulated with crutches from [facility] and was admitted to outpatient wound care for nursing visit under the direct supervision of Georges Gabriel MD. Dressing removed, wound cleansed and dressings applied per order. Patient assessed for changes in conditions, medications and medical history. Patient instructed on the signs and symptoms of infection and to call the Wound Center if any occur or to go to the ED if we are closed: Increased pain in wound Increase in drainage from the wound Redness in the skin surrounding the wound Bleeding from the wound Temperature of 101 or greater Patient instructed that the weight of their body puts a large amount of pressure on their wounds. This pressure keeps the new tissue from growing and inhibits new blood vessels from forming. Explained that, if they continue to bear weight on a body part that has a wound, the time it takes to heal the wound increases, the wound may get worse or the wound may not heal at all. Patient verbalized understanding of all discharge instructions and plan of care and ambulated with crutches out to [facility] in stable condition with no sign or symptom of distress at time of discharge.
== END 2018-05-24 10:01 | disposition home or self-care (01) ==
LOC: WOUND CARE 09:18 → EDSTATUS 09:30 → WOUND CARE 10:01
PROVIDERS: ATTEND Surgery
DX: T81.89XD Other complications of procedures, not elsewhere classified, subsequent encounter (principal); L97.514 Non-pressure chronic ulcer of other part of right foot with necrosis of bone; M86.8X7 Other osteomyelitis, ankle and foot; G62.9 Polyneuropathy, unspecified; I10 Essential (primary) hypertension; E78.5 Hyperlipidemia, unspecified; F41.9 Anxiety disorder, unspecified; F32.9 Major depressive disorder, single episode, unspecified; Z89.411 Acquired absence of right great toe; Y83.8 Other surgical procedures as the cause of abnormal reaction of the patient, or of later complication, without mention of misadventure at the time of the procedure
CPT/HCPCS: A6209; A6223; A6266; G0463; A6446

== ENCOUNTER 2018-05-28 09:20 | Day surgery (SDC) | payer MEDICAID ==
[2018-05-28] MEDS ORDERED: LIDOcaine/PRILOcaine 5gm cream TP ONE (09:44)
--- NOTE | 2018-05-28 15:02 | NUR ---
Patient ambulated independently from [facility] and was admitted to outpatient wound care for physician visit with Georges Gabriel MD. Dressing removed, wound cleansed and lidocaine applied per order. Patient assessed for changes in conditions, medications and medical history. Dr. Gabriel at bedside accompanied by RN. Wound assessed, time out performed by MD/RN. Wound debrided as detailed in the physician progress/procedure note. Plan of care discussed with patient. Dressings placed per MD orders. Patient instructed on the signs and symptoms of infection and to call the Wound Center if any occur or to go to the ED if we are closed: Increased pain in wound Increase in drainage from the wound Redness in the skin surrounding the wound Bleeding from the wound Temperature of 101 or greater Patient instructed that the weight of their body puts a large amount of pressure on their wounds. This pressure keeps the new tissue from growing and inhibits new blood vessels from forming. Explained that, if they continue to bear weight on a body part that has a wound, the time it takes to heal the wound increases, the wound may get worse or the wound may not heal at all. Patient verbalized understanding of all discharge instructions and plan of care and ambulated independently out to [facility] in stable condition with no sign or symptom of distress at time of discharge. Addendum: 05/28/18 at 1503 by Rachael Hamm RN Amended: Links added.
== END 2018-05-28 11:20 | disposition home or self-care (01) ==
LOC: WOUND CARE 09:20
PROVIDERS: ATTEND Surgery
DX: T81.89XD Other complications of procedures, not elsewhere classified, subsequent encounter (principal); L97.514 Non-pressure chronic ulcer of other part of right foot with necrosis of bone; M86.8X7 Other osteomyelitis, ankle and foot; G62.9 Polyneuropathy, unspecified; I10 Essential (primary) hypertension; E78.5 Hyperlipidemia, unspecified; F41.9 Anxiety disorder, unspecified; F32.9 Major depressive disorder, single episode, unspecified; Z89.411 Acquired absence of right great toe; Y83.8 Other surgical procedures as the cause of abnormal reaction of the patient, or of later complication, without mention of misadventure at the time of the procedure
CPT/HCPCS: 97597; A6209; A6223; A6021; A6446

== ENCOUNTER 2018-05-31 09:30 | Day surgery (SDC) | payer MEDICAID ==
[2018-05-31] MEDS ORDERED: LIDOcaine/PRILOcaine 5gm cream TP ONE (10:16)
--- NOTE | 2018-05-31 11:00 | NUR ---
Patient ambulated with crutches from [facility] and was admitted to outpatient wound care for physician visit with Georges Gabriel MD. Dressing removed, wound cleansed and Emla cream applied per order. Patient assessed for changes in conditions, medications and medical history. 1030 - Dr. Gabriel at bedside accompanied by RN. Wound assessed, time out performed by MD/RN. Wound debrided and procedure performed as detailed in the physician progress/procedure note. Plan of care discussed with patient. Dressings placed per MD orders. Patient instructed on the signs and symptoms of infection and to call the Wound Center if any occur or to go to the ED if we are closed: Increased pain in wound Increase in drainage from the wound Redness in the skin surrounding the wound Bleeding from the wound Temperature of 101 or greater Patient instructed that the weight of their body puts a large amount of pressure on their wounds. This pressure keeps the new tissue from growing and inhibits new blood vessels from forming. Explained that, if they continue to bear weight on a body part that has a wound, the time it takes to heal the wound increases, the wound may get worse or the wound may not heal at all. Patient verbalized understanding of all discharge instructions and plan of care and ambulated with crutches out to [facility] in stable condition with no sign or symptom of distress at time of discharge.
== END 2018-05-31 11:00 | disposition home or self-care (01) ==
LOC: WOUND CARE 09:30
PROVIDERS: ATTEND Surgery
DX: T81.89XD Other complications of procedures, not elsewhere classified, subsequent encounter (principal); L97.514 Non-pressure chronic ulcer of other part of right foot with necrosis of bone; M86.8X7 Other osteomyelitis, ankle and foot; G62.9 Polyneuropathy, unspecified; I10 Essential (primary) hypertension; E78.5 Hyperlipidemia, unspecified; F41.9 Anxiety disorder, unspecified; F32.9 Major depressive disorder, single episode, unspecified; Z89.411 Acquired absence of right great toe; Y83.8 Other surgical procedures as the cause of abnormal reaction of the patient, or of later complication, without mention of misadventure at the time of the procedure
CPT/HCPCS: 15275; A6209; A6222; Q4187; A6021; A6250; A6446

== ENCOUNTER 2018-06-04 09:24 | Outpatient (CLI) | payer MEDICAID ==
--- NOTE | 2018-06-04 11:30 | NUR ---
Patient ambulated with crutches from [facility] and was admitted to outpatient wound care for physician visit with Georges Gabriel MD. Dressing removed, wound cleansed. Patient assessed for changes in conditions, medications and medical history. 1045 - Dr. Gabriel at bedside accompanied by RN. Wound assessed by MD. Plan of care discussed with patient. Dressings placed per MD orders. Patient instructed on the signs and symptoms of infection and to call the Wound Center if any occur or to go to the ED if we are closed: Increased pain in wound Increase in drainage from the wound Redness in the skin surrounding the wound Bleeding from the wound Temperature of 101 or greater Patient instructed that the weight of their body puts a large amount of pressure on their wounds. This pressure keeps the new tissue from growing and inhibits new blood vessels from forming. Explained that, if they continue to bear weight on a body part that has a wound, the time it takes to heal the wound increases, the wound may get worse or the wound may not heal at all. Patient verbalized understanding of all discharge instructions and plan of care and ambulated with crutches out to [facility] in stable condition with no sign or symptom of distress at time of discharge.
== END 2018-06-04 11:08 | disposition home or self-care (01) ==
LOC: WOUND CARE 09:24 → EDSTATUS 09:30 → WOUND CARE 11:08
PROVIDERS: ATTEND Surgery
DX: T81.89XD Other complications of procedures, not elsewhere classified, subsequent encounter (principal); L97.514 Non-pressure chronic ulcer of other part of right foot with necrosis of bone; M86.8X7 Other osteomyelitis, ankle and foot; G62.9 Polyneuropathy, unspecified; I10 Essential (primary) hypertension; E78.5 Hyperlipidemia, unspecified; F41.9 Anxiety disorder, unspecified; F32.9 Major depressive disorder, single episode, unspecified; Z89.411 Acquired absence of right great toe; Y83.8 Other surgical procedures as the cause of abnormal reaction of the patient, or of later complication, without mention of misadventure at the time of the procedure
CPT/HCPCS: A6209; A6222; G0463; A6446

== ENCOUNTER 2018-06-07 09:23 | Day surgery (SDC) | payer MEDICAID ==
--- NOTE | 2018-06-07 14:32 | NUR ---
Patient ambulated independently from [facility] and was admitted to outpatient wound care for physician visit with Georges Gabriel MD. Dressing removed, wound cleansed and lidocaine applied per order. Patient assessed for changes in conditions, medications and medical history. Dr. Gabriel at bedside accompanied by RN. Wound assessed, time out performed by MD/RN. Wound debrided as detailed in the physician progress/procedure note. Plan of care discussed with patient. Dressings placed per MD orders. Patient instructed on the signs and symptoms of infection and to call the Wound Center if any occur or to go to the ED if we are closed: Increased pain in wound Increase in drainage from the wound Redness in the skin surrounding the wound Bleeding from the wound Temperature of 101 or greater Patient instructed that the weight of their body puts a large amount of pressure on their wounds. This pressure keeps the new tissue from growing and inhibits new blood vessels from forming. Explained that, if they continue to bear weight on a body part that has a wound, the time it takes to heal the wound increases, the wound may get worse or the wound may not heal at all. Patient verbalized understanding of all discharge instructions and plan of care and ambulated independently out to [facility] in stable condition with no sign or symptom of distress at time of discharge. Addendum: 06/07/18 at 1434 by Rachael Hamm RN Amended: Links added.
== END 2018-06-07 11:31 | disposition home or self-care (01) ==
LOC: WOUND CARE 09:23
PROVIDERS: ATTEND Surgery
DX: T81.89XD Other complications of procedures, not elsewhere classified, subsequent encounter (principal); L97.514 Non-pressure chronic ulcer of other part of right foot with necrosis of bone; M86.8X7 Other osteomyelitis, ankle and foot; G62.9 Polyneuropathy, unspecified; I10 Essential (primary) hypertension; E78.5 Hyperlipidemia, unspecified; F41.9 Anxiety disorder, unspecified; F32.9 Major depressive disorder, single episode, unspecified; Z89.411 Acquired absence of right great toe; Y83.8 Other surgical procedures as the cause of abnormal reaction of the patient, or of later complication, without mention of misadventure at the time of the procedure
CPT/HCPCS: 15275; A6209; A6222; Q4187; 97597; A6021; A6250; A6446; Q4186

== ENCOUNTER 2018-06-13 09:19 | Day surgery (SDC) | payer MEDICAID ==
[2018-06-13] MEDS ORDERED: LIDOcaine/PRILOcaine 5gm cream TP ONE (09:48)
--- NOTE | 2018-06-13 11:05 | NUR ---
Patient ambulated independently from [facility] and was admitted to outpatient wound care for physician visit. Dressings removed, wound cleansed. Patient assessment completed with review of patient's medical history and current medications. 1019-Dr. Gabriel at bedside accompanied by RN. Wound assessed, time-out performed by MD/RN. Wound debrided as detailed in the physician progress/procedure note. Plan of care discussed with patient. Dressings placed per MD orders. Patient instructed on the signs and symptoms of infection and to call the Wound Center if any occur or to go to the ED if we are closed: Increased pain in the wound Increase in drainage from the wound Redness in the skin surrounding the wound Bleeding from the wound Temperature of 101F or greater Patient instructed that the weight of their body puts a large amount of pressure on their wounds. This pressure keeps the new tissue from growing and inhibits new blood vessels from forming. Explained that, if they continue to bear weight on a body part that has a wound, the time it takes to heal the wound increases, the wound may get worse, or the wound may not heal at all. Patient verbalized understanding of all discharge instructions and plan of care. Patient ambulated independently out to [facility] in stable condition with no signs or symptoms of distress at time of discharge.
== END 2018-06-13 10:48 | disposition home or self-care (01) ==
LOC: WOUND CARE 09:19
PROVIDERS: ATTEND Surgery
DX: T81.89XD Other complications of procedures, not elsewhere classified, subsequent encounter (principal); L97.514 Non-pressure chronic ulcer of other part of right foot with necrosis of bone; M86.8X7 Other osteomyelitis, ankle and foot; G62.9 Polyneuropathy, unspecified; I10 Essential (primary) hypertension; E78.5 Hyperlipidemia, unspecified; F41.9 Anxiety disorder, unspecified; F32.9 Major depressive disorder, single episode, unspecified; Z89.411 Acquired absence of right great toe; Y83.8 Other surgical procedures as the cause of abnormal reaction of the patient, or of later complication, without mention of misadventure at the time of the procedure
CPT/HCPCS: 97597; A6209; A6021; A6446

== ENCOUNTER 2018-06-21 08:55 | Day surgery (SDC) | payer MEDICAID ==
[2018-06-21] MEDS ORDERED: LIDOcaine/PRILOcaine 5gm cream TP ONE (09:46)
--- NOTE | 2018-06-21 16:21 | NUR ---
Patient ambulated independently from [facility] and was admitted to outpatient wound care for physician visit with Georges Gabriel MD. Dressing removed, wound cleansed and Emla cream applied per order. Patient assessed for changes in conditions, medications and medical history. Dr. Gabriel at bedside accompanied by RN. Wound assessed, time out performed by MD/RN. Wound debrided as detailed in the physician progress/procedure note. Plan of care discussed with patient. Dressings placed per MD orders. Patient instructed on the signs and symptoms of infection and to call the Wound Center if any occur or to go to the ED if we are closed: Increased pain in wound Increase in drainage from the wound Redness in the skin surrounding the wound Bleeding from the wound Temperature of 101 or greater Patient instructed that the weight of their body puts a large amount of pressure on their wounds. This pressure keeps the new tissue from growing and inhibits new blood vessels from forming. Explained that, if they continue to bear weight on a body part that has a wound, the time it takes to heal the wound increases, the wound may get worse or the wound may not heal at all. Patient verbalized understanding of all discharge instructions and plan of care and ambulated independently out to [facility] in stable condition with no sign or symptom of distress at time of discharge. Addendum: 06/21/18 at 1622 by Rachael Hamm RN Amended: Links added.
== END 2018-06-21 11:38 | disposition home or self-care (01) ==
LOC: WOUND CARE 08:55
PROVIDERS: ATTEND Surgery
DX: T81.89XD Other complications of procedures, not elsewhere classified, subsequent encounter (principal); L97.514 Non-pressure chronic ulcer of other part of right foot with necrosis of bone; M86.8X7 Other osteomyelitis, ankle and foot; G62.9 Polyneuropathy, unspecified; I10 Essential (primary) hypertension; E78.5 Hyperlipidemia, unspecified; F41.9 Anxiety disorder, unspecified; F32.9 Major depressive disorder, single episode, unspecified; Z89.411 Acquired absence of right great toe; Y83.8 Other surgical procedures as the cause of abnormal reaction of the patient, or of later complication, without mention of misadventure at the time of the procedure
CPT/HCPCS: 15275; A6209; A6222; Q4187; A6250; A6446

== ENCOUNTER 2018-06-28 09:03 | Outpatient (CLI) | payer MEDICAID ==
--- NOTE | 2018-06-28 15:55 | NUR ---
Patient ambulated independently from [facility] and was admitted to outpatient wound care for physician visit with Georges Gabriel MD. Dressing removed and wound cleansed. Patient assessed for changes in conditions, medications and medical history. Dr. Gabriel at bedside accompanied by RN. Wound assessed and no debridement was done. Plan of care discussed with patient. Dressings placed per MD orders. Patient instructed on the signs and symptoms of infection and to call the Wound Center if any occur or to go to the ED if we are closed: Increased pain in wound Increase in drainage from the wound Redness in the skin surrounding the wound Bleeding from the wound Temperature of 101 or greater Patient instructed that the weight of their body puts a large amount of pressure on their wounds. This pressure keeps the new tissue from growing and inhibits new blood vessels from forming. Explained that, if they continue to bear weight on a body part that has a wound, the time it takes to heal the wound increases, the wound may get worse or the wound may not heal at all. Patient verbalized understanding of all discharge instructions and plan of care and ambulated independently out to [facility] in stable condition with no sign or symptom of distress at time of discharge. Addendum: 06/28/18 at 1557 by Rachael Hamm RN Amended: Links added.
== END 2018-06-28 11:25 | disposition home or self-care (01) ==
LOC: WOUND CARE 09:03 → EDSTATUS 09:30 → WOUND CARE 11:25
PROVIDERS: ATTEND Surgery
DX: T81.89XD Other complications of procedures, not elsewhere classified, subsequent encounter (principal); L97.514 Non-pressure chronic ulcer of other part of right foot with necrosis of bone; M86.8X7 Other osteomyelitis, ankle and foot; G62.9 Polyneuropathy, unspecified; I10 Essential (primary) hypertension; E78.5 Hyperlipidemia, unspecified; F41.9 Anxiety disorder, unspecified; F32.9 Major depressive disorder, single episode, unspecified; Z89.411 Acquired absence of right great toe; Y83.8 Other surgical procedures as the cause of abnormal reaction of the patient, or of later complication, without mention of misadventure at the time of the procedure
CPT/HCPCS: A6209; G0463; A6206; A6446

== ENCOUNTER 2018-07-04 09:23 | Day surgery (SDC) | payer MEDICAID ==
[2018-07-04] MEDS ORDERED: LIDOcaine/PRILOcaine 5gm cream TP ONE (09:38)
--- NOTE | 2018-07-04 15:29 | NUR ---
Patient ambulated independently from the [facility] and was admitted to outpatient wound care for physician visit with Georges Gabriel MD. Dressing removed, wound cleansed and Emla cream applied per order. Patient assessed for changes in conditions, medications and medical history. Dr. Gabriel at bedside accompanied by RN. Wound assessed, time out performed by MD/RN. Wound debrided as detailed in the physician progress/procedure note. Plan of care discussed with patient. Dressings placed per MD orders. Patient instructed on the signs and symptoms of infection and to call the Wound Center if any occur or to go to the ED if we are closed: Increased pain in wound Increase in drainage from the wound Redness in the skin surrounding the wound Bleeding from the wound Temperature of 101 or greater Patient instructed that the weight of their body puts a large amount of pressure on their wounds. This pressure keeps the new tissue from growing and inhibits new blood vessels from forming. Explained that, if they continue to bear weight on a body part that has a wound, the time it takes to heal the wound increases, the wound may get worse or the wound may not heal at all. Patient verbalized understanding of all discharge instructions and plan of care and ambulated independently out to the [facility] in stable condition with no sign or symptom of distress at time of discharge. Addendum: 07/04/18 at 1530 by Rachael Hamm RN Amended: Links added.
== END 2018-07-04 11:15 | disposition home or self-care (01) ==
LOC: WOUND CARE 09:23
PROVIDERS: ATTEND Surgery
DX: T81.89XD Other complications of procedures, not elsewhere classified, subsequent encounter (principal); L97.514 Non-pressure chronic ulcer of other part of right foot with necrosis of bone; M86.8X7 Other osteomyelitis, ankle and foot; G62.9 Polyneuropathy, unspecified; I10 Essential (primary) hypertension; E78.5 Hyperlipidemia, unspecified; F41.9 Anxiety disorder, unspecified; F32.9 Major depressive disorder, single episode, unspecified; Z89.411 Acquired absence of right great toe; Y83.8 Other surgical procedures as the cause of abnormal reaction of the patient, or of later complication, without mention of misadventure at the time of the procedure
CPT/HCPCS: 15275; 97597; A6209; Q4187; A6021; A6206; A6446

== ENCOUNTER 2018-07-11 09:20 | Outpatient (CLI) | payer MEDICAID ==
--- NOTE | 2018-07-11 11:00 | NUR ---
Patient ambulated independently from [facility] and was admitted to outpatient wound care for physician visit with Georges Gabriel MD. Dressing removed, wound cleansed. Patient assessed for changes in conditions, medications and medical history. 1020 - Dr. Gabriel at bedside accompanied by RN. Wound assessed by MD, orders written. Plan of care discussed with patient. Dressings placed per MD orders. Patient instructed on the signs and symptoms of infection and to call the Wound Center if any occur or to go to the ED if we are closed: Increased pain in wound Increase in drainage from the wound Redness in the skin surrounding the wound Bleeding from the wound Temperature of 101 or greater Patient instructed that the weight of their body puts a large amount of pressure on their wounds. This pressure keeps the new tissue from growing and inhibits new blood vessels from forming. Explained that, if they continue to bear weight on a body part that has a wound, the time it takes to heal the wound increases, the wound may get worse or the wound may not heal at all. Patient verbalized understanding of all discharge instructions and plan of care and ambulated independently out to [facility] in stable condition with no sign or symptom of distress at time of discharge.
== END 2018-07-11 11:06 | disposition home or self-care (01) ==
LOC: WOUND CARE 09:20 → EDSTATUS 09:30 → WOUND CARE 11:06
PROVIDERS: ATTEND Surgery
DX: T81.89XD Other complications of procedures, not elsewhere classified, subsequent encounter (principal); L97.514 Non-pressure chronic ulcer of other part of right foot with necrosis of bone; M86.8X7 Other osteomyelitis, ankle and foot; G62.9 Polyneuropathy, unspecified; I10 Essential (primary) hypertension; E78.5 Hyperlipidemia, unspecified; F41.9 Anxiety disorder, unspecified; F32.9 Major depressive disorder, single episode, unspecified; Z89.411 Acquired absence of right great toe; Y83.8 Other surgical procedures as the cause of abnormal reaction of the patient, or of later complication, without mention of misadventure at the time of the procedure
CPT/HCPCS: A6209; A6222; G0463; A6446

== ENCOUNTER 2018-07-18 09:00 | Day surgery (SDC) | payer MEDICAID ==
[2018-07-18] MEDS ORDERED: LIDOcaine/PRILOcaine 5gm cream TP ONE (09:37)
--- NOTE | 2018-07-18 11:00 | NUR ---
Patient ambulated independently from [facility] and was admitted to outpatient wound care for physician visit with Georges Gabriel MD. Dressing removed, wound cleansed. Patient assessed for changes in conditions, medications and medical history. 1015 - Dr. Gabriel at bedside accompanied by RN. Wound assessed, time out performed by MD/RN. Wound debrided as detailed in the physician progress/procedure note. Plan of care discussed with patient. Dressings placed per MD orders. Patient instructed on the signs and symptoms of infection and to call the Wound Center if any occur or to go to the ED if we are closed: Increased pain in wound Increase in drainage from the wound Redness in the skin surrounding the wound Bleeding from the wound Temperature of 101 or greater Patient instructed that the weight of their body puts a large amount of pressure on their wounds. This pressure keeps the new tissue from growing and inhibits new blood vessels from forming. Explained that, if they continue to bear weight on a body part that has a wound, the time it takes to heal the wound increases, the wound may get worse or the wound may not heal at all. Patient verbalized understanding of all discharge instructions and plan of care and ambulated independently out to [facility] in stable condition with no sign or symptom of distress at time of discharge.
== END 2018-07-18 10:55 | disposition home or self-care (01) ==
LOC: WOUND CARE 09:00
PROVIDERS: ATTEND Surgery
DX: T81.89XD Other complications of procedures, not elsewhere classified, subsequent encounter (principal); L97.514 Non-pressure chronic ulcer of other part of right foot with necrosis of bone; M86.8X7 Other osteomyelitis, ankle and foot; G62.9 Polyneuropathy, unspecified; I10 Essential (primary) hypertension; E78.5 Hyperlipidemia, unspecified; F41.9 Anxiety disorder, unspecified; F32.9 Major depressive disorder, single episode, unspecified; Z89.411 Acquired absence of right great toe; Y83.8 Other surgical procedures as the cause of abnormal reaction of the patient, or of later complication, without mention of misadventure at the time of the procedure
CPT/HCPCS: 97597; A6209; A6021; A6206; A6446

== ENCOUNTER 2018-07-31 09:20 | Outpatient (CLI) | payer MEDICAID ==
--- NOTE | 2018-07-31 14:24 | NUR ---
0900 Patient ambulated safely into [facility]. Patient admitted to outpatient wound care clinic for follow-up visit with physician. Dressing removed, wound cleansed. Patient assessed for changes in conditions, medications and medical history. Patient showed no s/s of distress at time of assessment. 0955 at bedside accompanied by RN. Wounds assessed, today as detailed in the physician progress/procedure note. Plan of care discussed with patient. Dressings placed per MD orders. Patient is discharged from wound care. Patient instructed on the signs and symptoms of infection and to call the Wound Center if any occur or to go to the ED if we are closed: Increased pain in wound Increase in drainage from the wound Redness in the skin surrounding the wound Bleeding from the wound Temperature of 101 or greater Patient instructed that the weight of their body puts a large amount of pressure on their wounds. This pressure keeps the new tissue from growing and inhibits new blood vessels from forming. Explained that, if they continue to bear weight on a body part that has a wound, the time it takes to heal the wound increases, the wound may get worse or the wound may not heal at all. Patient verbalized understanding of all discharge instructions and plan of care. Patient ambulated independently out to [facility] and is in stable condition with no sign or symptom of distress at time of discharge.
== END 2018-07-31 10:16 | disposition home or self-care (01) ==
LOC: WOUND CARE 09:20
PROVIDERS: ATTEND Surgery
DX: T81.89XD Other complications of procedures, not elsewhere classified, subsequent encounter (principal); L97.514 Non-pressure chronic ulcer of other part of right foot with necrosis of bone; M86.8X7 Other osteomyelitis, ankle and foot; G62.9 Polyneuropathy, unspecified; I10 Essential (primary) hypertension; E78.5 Hyperlipidemia, unspecified; F41.9 Anxiety disorder, unspecified; F32.9 Major depressive disorder, single episode, unspecified; Z89.411 Acquired absence of right great toe; Y83.8 Other surgical procedures as the cause of abnormal reaction of the patient, or of later complication, without mention of misadventure at the time of the procedure
CPT/HCPCS: A6212; G0463

== ENCOUNTER 2019-04-02 06:28 | Inpatient (IN) | payer MEDICAID ==
[~2019-04-02] VITALS: Ht 193 cm; Wt 86.4 kg
[2019-04-02] MEDS ORDERED: morphine 4 MG/ML inj SYRINge IV ONE ×2 (07:00→10:30)
[2019-04-02] MEDS ORDERED: morphine 10mg/ml inj. IV ONE (08:10)
--- NOTE | 2019-04-02 08:30 | NUR ---
SENIOR NET WEB DEVELOPER AT BEDSIDE
[2019-04-02 09:11] LABS: BASOPHILS % (AUTO) 0.7 % (0-1); EOSINOPHILS % (AUTO) 0.2 % (0-6); HEMATOCRIT 42.2 % (42.0-52.0); HEMOGLOBIN 14.2 g/dl (14.0-17.9); LYMPHOCYTES # (AUTO) 1.3 X10'3 (1.1-4.8); LYMPHOCYTES % (AUTO) 20.4 % (21-51); MEAN CORPUSCULAR HEMOGLOBIN 30.9 PG (27.0-31.0); MEAN CORPUSCULAR HGB CONC 33.6 g/dL (33.0-36.5); MEAN PLATELET VOLUME 7.1 FL (7.4-10.4); MONOCYTES # (AUTO) 0.4 X10'3 (0-0.9); MONOCYTES % (AUTO) 6.5 % (2-12); NEUTROPHILS # (AUTO) 4.8 X10'3 (1.8-7.7); NEUTROPHILS % (AUTO) 72.2 % (42-75); PLATELET COUNT 190 X10'3 (140-440); RED BLOOD COUNT 4.59 X10'6 (4.70-6.10); WHITE BLOOD COUNT 6.6 X10'3 (4.5-11.0)
[2019-04-02 09:43] LABS: ALANINE AMINOTRANSFERASE 22 U/L (12-78); ALBUMIN 2.9 G/DL (3.4-5.0); ALBUMIN/GLOBULIN RATIO 0.7 (1.1-1.5); ALKALINE PHOSPHATASE 126 IU/L (46-116); ANION GAP 10 (8-16); ASPARTATE AMINO TRANSFERASE 35 U/L (10-37); BILIRUBIN,TOTAL 0.3 MG/DL (0.1-1.0); BLOOD UREA NITROGEN 10 MG/DL (7-18); BUN/CREATININE RATIO 9.5 (5.4-32.0); CALCIUM 7.8 MG/DL (8.5-10.1); CHLORIDE 113 MMOL/L (99-107); CREATININE 1.05 MG/DL (0.60-1.10); GLUCOSE 96 MG/DL (70-104); POTASSIUM 3.9 MMOL/L (3.5-5.1); SODIUM 147 MMOL/L (135-145); TOTAL CARBON DIOXIDE 24.2 MMOL/L (24-32); TOTAL PROTEIN 6.9 G/DL (6.4-8.2); eGFR 74 ML/MIN
--- NOTE | 2019-04-02 10:29 | NUR ---
DISCUSSED PLAN OF CARE WITH DR GUTIERREZ, ORDERS
[2019-04-02] MEDS ORDERED: normal saline 1000ML IV soln IVB ONE (10:30)
[2019-04-02] MEDS ORDERED: haloperidol lactate 5mg/ml inj IM PRN (11:35)
[2019-04-02] MEDS ORDERED: magnesium Cl slow-release 64mg tablet PO PRN (11:35)
[2019-04-02] MEDS ORDERED: potassium CL 10mEq/100ml bag 100 ML IV PRN ×2 (11:35)
[2019-04-02] MEDS ORDERED: potassium Cl 20 mEq SR tablet PO PRN ×2 (11:35)
[2019-04-02] MEDS ORDERED: thiamine 100mg/ml 2ml inj. IV ONE (11:35)
[2019-04-02] MEDS ORDERED: haloperidol 5mg tablet PO PRN (11:35)
[2019-04-02] MEDS ORDERED: LORazepam 2 mg/ml vial IV PRN (11:35)
[2019-04-02] MEDS ORDERED: magnesium 2GM in 50ml NS 50 ML IV PRN (11:35)
[2019-04-02] MEDS ORDERED: ondansetron/PF 4mg/2ml inj IV PRN (11:35)
[2019-04-02] MEDS ORDERED: dextrose 50%-water 50ml dispensing syringe IV PRN (11:35)
[2019-04-02] MEDS ORDERED: magnesium 4gm in 100ml NS 100 ML IV PRN (11:35)
[2019-04-02] MEDS ORDERED: FLU VACC QS2019-20 36MOS UP/PF 60 MCG/0.5 ML SYRINGE IMVAC ONE (11:45)
--- NOTE | 2019-04-02 13:30 | NUR ---
RECEIVED REPORT FORM ESTEBAN LOYA IN ER
[2019-04-02] MEDS: normal saline 1000ml 1,000 ML IV SCH (13:34)
--- NOTE | 2019-04-02 14:06 | NUR ---
GAVE REPORT TO ESTEBAN DE JESUS
--- NOTE | 2019-04-02 15:08 | NUR ---
PAGER ID: [phone] MESSAGE: [id number] Alley needs pain meds ordered carlyn please--humerus fx [phone] Nancy
[2019-04-02] MEDS: HYDROcodone/acetaminophen 10/325mg tab PO PRN ×2 (15:24→21:35)
[2019-04-02 18:00] VITALS: BP 103/73
[2019-04-02] MEDS: LORazepam 1 MG tablet PO PRN ×2 (19:30→21:32)
[2019-04-02] MEDS: K and/or MAG REPLACEMENT MC SCH (20:00)
[2019-04-02 22:00] VITALS: BP 124/75
--- NOTE | 2019-04-02 23:42 | NUR ---
pain medication given at same time as Ativan, did not scan.
[2019-04-03] MEDS: LORazepam 1 MG tablet PO PRN ×4 (00:53→12:53)
[2019-04-03] MEDS: HYDROcodone/acetaminophen 10/325mg tab PO PRN ×3 (03:36→20:18)
[2019-04-03 05:40] LABS: BASOPHILS % (AUTO) 0.7 % (0-1); EOSINOPHILS % (AUTO) 0.2 % (0-6); HEMATOCRIT 33.2 % (42.0-52.0); HEMOGLOBIN 11.3 g/dl (14.0-17.9); LYMPHOCYTES # (AUTO) 1.2 X10'3 (1.1-4.8); LYMPHOCYTES % (AUTO) 23.5 % (21-51); MEAN CORPUSCULAR HEMOGLOBIN 31.5 PG (27.0-31.0); MEAN CORPUSCULAR VOLUME 92.4 FL (78-98); MEAN PLATELET VOLUME 7.2 FL (7.4-10.4); MONOCYTES # (AUTO) 0.7 X10'3 (0-0.9); MONOCYTES % (AUTO) 14.2 % (2-12); NEUTROPHILS # (AUTO) 3.1 X10'3 (1.8-7.7); NEUTROPHILS % (AUTO) 61.4 % (42-75); PLATELET COUNT 114 X10'3 (140-440); RED BLOOD COUNT 3.59 X10'6 (4.70-6.10); WHITE BLOOD COUNT 5.1 X10'3 (4.5-11.0)
[2019-04-03 05:52] LABS: ALBUMIN 2.6 G/DL (3.4-5.0); ANION GAP 8 (8-16); BLOOD UREA NITROGEN 10 MG/DL (7-18); BUN/CREATININE RATIO 11.4 (5.4-32.0); CALCIUM 8.3 MG/DL (8.5-10.1); CHLORIDE 108 MMOL/L (99-107); CREATININE 0.88 MG/DL (0.60-1.10); GLUCOSE 108 MG/DL (70-104); MAGNESIUM 1.6 MG/DL (1.5-2.4); POTASSIUM 4.3 MMOL/L (3.5-5.1); SODIUM 141 MMOL/L (135-145); TOTAL CARBON DIOXIDE 24.9 MMOL/L (24-32); eGFR > 90 ML/MIN
[2019-04-03 06:00] VITALS: BP 126/77
--- NOTE | 2019-04-03 06:00 | NUR ---
Patient in room ORTHO 4022. I have received report from ESTEBAN Oscar and had the opportunity to ask questions and assume patient care.
--- NOTE | 2019-04-03 06:31 | NUR ---
Report given to janey Rose.
[2019-04-03] MEDS: K and/or MAG REPLACEMENT MC SCH ×2 (08:00→19:45)
[2019-04-03 10:00] VITALS: BP 124/81
[2019-04-03] MEDS ORDERED: FLU VACC QS2019-20 36MOS UP/PF 60 MCG/0.5 ML SYRINGE IMVAC ONE (10:00)
[2019-04-03] MEDS ORDERED: metoprolol tartrate 50mg tablet PO SCH (12:40)
[2019-04-03] MEDS: metoprolol tartrate 50mg tablet PO SCH ×2 (15:14→19:49)
[2019-04-03 18:00] VITALS: BP 103/68
--- NOTE | 2019-04-03 18:00 | NUR ---
Problems reprioritized. Patient report given, questions answered & plan of care reviewed with ESTEBAN Patel.
[2019-04-03 22:00] VITALS: BP 110/69
[2019-04-04 06:20] LABS: BASOPHILS # (AUTO) 0.1 X10'3 (0-0.2); BASOPHILS % (AUTO) 0.8 % (0-1); EOSINOPHILS % (AUTO) 0.4 % (0-6); HEMOGLOBIN 11.1 g/dl (14.0-17.9); LYMPHOCYTES # (AUTO) 1.6 X10'3 (1.1-4.8); LYMPHOCYTES % (AUTO) 22.3 % (21-51); MEAN CORPUSCULAR HEMOGLOBIN 31.1 PG (27.0-31.0); MEAN CORPUSCULAR HGB CONC 33.6 g/dL (33.0-36.5); MEAN CORPUSCULAR VOLUME 92.6 FL (78-98); MEAN PLATELET VOLUME 7.9 FL (7.4-10.4); MONOCYTES # (AUTO) 0.7 X10'3 (0-0.9); NEUTROPHILS # (AUTO) 4.9 X10'3 (1.8-7.7); NEUTROPHILS % (AUTO) 66.5 % (42-75); PLATELET COUNT 112 X10'3 (140-440); RED BLOOD COUNT 3.57 X10'6 (4.70-6.10); RED CELL DISTRIBUTION WIDTH 15.5 % (11.5-14.5); WHITE BLOOD COUNT 7.3 X10'3 (4.5-11.0)
[2019-04-04 06:28] LABS: ALBUMIN 2.5 G/DL (3.4-5.0); ANION GAP 6 (8-16); BLOOD UREA NITROGEN 10 MG/DL (7-18); BUN/CREATININE RATIO 11.1 (5.4-32.0); CALCIUM 8.8 MG/DL (8.5-10.1); CHLORIDE 106 MMOL/L (99-107); GLUCOSE 101 MG/DL (70-104); MAGNESIUM 1.7 MG/DL (1.5-2.4); POTASSIUM 3.9 MMOL/L (3.5-5.1); SODIUM 140 MMOL/L (135-145); TOTAL CARBON DIOXIDE 27.9 MMOL/L (24-32); eGFR 89 ML/MIN
--- NOTE | 2019-04-04 06:29 | NUR ---
Problems reprioritized. Patient report given, questions answered & plan of care reviewed with ESTEBAN Ring.
[2019-04-04 06:33] VITALS: BP 136/79
--- NOTE | 2019-04-04 06:34 | NUR ---
Patient in room ORTHO 4022. I have received report from ESTEBAN CARO and had the opportunity to ask questions and assume patient care.
[2019-04-04] MEDS: K and/or MAG REPLACEMENT MC SCH ×2 (07:10→20:00)
[2019-04-04] MEDS: metoprolol tartrate 50mg tablet PO SCH ×2 (07:21→21:10)
[2019-04-04 10:00] VITALS: BP 121/66
[2019-04-04] MEDS: normal saline 1000ml 1,000 ML IV SCH (11:35)
[2019-04-04] MEDS: HYDROcodone/acetaminophen 10/325mg tab PO PRN ×2 (14:53→21:11)
[2019-04-04 18:00] VITALS: BP 130/85
--- NOTE | 2019-04-04 18:00 | NUR ---
Patient in room ORTHO 4022. I have received report from María Elena ELLIS and had the opportunity to ask questions and assume patient care. Addendum: 04/04/19 at 1851 by Ani Martin RN Amended: Links added.
--- NOTE | 2019-04-04 18:46 | NUR ---
Problems reprioritized. Patient report given, questions answered & plan of care reviewed with GORDO ORELLANA.
[2019-04-04 22:00] VITALS: BP 131/83
[2019-04-05] MEDS: HYDROcodone/acetaminophen 10/325mg tab PO PRN ×2 (02:32→16:44)
[2019-04-05 06:10] VITALS: BP 103/60
[2019-04-05 06:23] LABS: BASOPHILS % (AUTO) 0.7 % (0-1); EOSINOPHILS # (AUTO) 0.1 X10'3 (0-0.9); HEMATOCRIT 30.1 % (42.0-52.0); HEMOGLOBIN 10.4 g/dl (14.0-17.9); LYMPHOCYTES # (AUTO) 1.3 X10'3 (1.1-4.8); LYMPHOCYTES % (AUTO) 22.3 % (21-51); MEAN CORPUSCULAR HEMOGLOBIN 31.4 PG (27.0-31.0); MEAN CORPUSCULAR HGB CONC 34.4 g/dL (33.0-36.5); MEAN CORPUSCULAR VOLUME 91.3 FL (78-98); MEAN PLATELET VOLUME 7.7 FL (7.4-10.4); MONOCYTES # (AUTO) 0.5 X10'3 (0-0.9); MONOCYTES % (AUTO) 8.7 % (2-12); NEUTROPHILS # (AUTO) 3.8 X10'3 (1.8-7.7); NEUTROPHILS % (AUTO) 67.3 % (42-75); PLATELET COUNT 106 X10'3 (140-440); RED BLOOD COUNT 3.29 X10'6 (4.70-6.10); RED CELL DISTRIBUTION WIDTH 15.5 % (11.5-14.5); WHITE BLOOD COUNT 5.7 X10'3 (4.5-11.0)
[2019-04-05 06:39] LABS: ALBUMIN 2.4 G/DL (3.4-5.0); ANION GAP 6 (8-16); BLOOD UREA NITROGEN 10 MG/DL (7-18); BUN/CREATININE RATIO 11.1 (5.4-32.0); CALCIUM 8.5 MG/DL (8.5-10.1); CHLORIDE 108 MMOL/L (99-107); GLUCOSE 88 MG/DL (70-104); MAGNESIUM 1.8 MG/DL (1.5-2.4); POTASSIUM 4.2 MMOL/L (3.5-5.1); SODIUM 142 MMOL/L (135-145); TOTAL CARBON DIOXIDE 28.3 MMOL/L (24-32); eGFR 89 ML/MIN
--- NOTE | 2019-04-05 06:47 | NUR ---
Patient in room ORTHO 4022. I have received report from Edmundo ORELLANA and had the opportunity to ask questions and assume patient care.
[2019-04-05] MEDS: LORazepam 1 MG tablet PO PRN (07:26)
[2019-04-05] MEDS: metoprolol tartrate 50mg tablet PO SCH ×2 (07:26→19:15)
[2019-04-05] MEDS: K and/or MAG REPLACEMENT MC SCH ×2 (08:00→20:00)
[2019-04-05 10:00] VITALS: BP 109/46
[2019-04-05 18:00] VITALS: BP 102/63
--- NOTE | 2019-04-05 18:11 | NUR ---
Patient report given to Isabel ORELLANA
--- NOTE | 2019-04-05 18:14 | NUR ---
Patient in room ORTHO 4022. I have received report from Concepcion ORELLANA and had the opportunity to ask questions and assume patient care.
[2019-04-05 22:00] VITALS: BP 107/68
[2019-04-06] MEDS: HYDROcodone/acetaminophen 10/325mg tab PO PRN ×3 (02:02→15:31)
[2019-04-06 06:00] VITALS: BP 104/69
--- NOTE | 2019-04-06 06:21 | NUR ---
Problems reprioritized. Patient report given, questions answered & plan of care reviewed with Thierno ORELLANA.
--- NOTE | 2019-04-06 06:37 | NUR ---
Patient in room ORTHO 4022. I have received report from Isabel ORELLANA and had the opportunity to ask questions and assume patient care.
[2019-04-06 06:45] LABS: BASOPHILS % (AUTO) 0.7 % (0-1); EOSINOPHILS % (AUTO) 1.1 % (0-6); HEMOGLOBIN 10.3 g/dl (14.0-17.9); LYMPHOCYTES % (AUTO) 24.4 % (21-51); MEAN CORPUSCULAR HEMOGLOBIN 31.6 PG (27.0-31.0); MEAN CORPUSCULAR HGB CONC 34.2 g/dL (33.0-36.5); MEAN CORPUSCULAR VOLUME 92.3 FL (78-98); MEAN PLATELET VOLUME 7.7 FL (7.4-10.4); MONOCYTES # (AUTO) 0.4 X10'3 (0-0.9); MONOCYTES % (AUTO) 10.6 % (2-12); NEUTROPHILS # (AUTO) 2.6 X10'3 (1.8-7.7); NEUTROPHILS % (AUTO) 63.2 % (42-75); PLATELET COUNT 121 X10'3 (140-440); RED BLOOD COUNT 3.25 X10'6 (4.70-6.10); RED CELL DISTRIBUTION WIDTH 15.6 % (11.5-14.5); WHITE BLOOD COUNT 4.1 X10'3 (4.5-11.0)
[2019-04-06 06:53] LABS: ALBUMIN 2.3 G/DL (3.4-5.0); ANION GAP 2 (8-16); BLOOD UREA NITROGEN 10 MG/DL (7-18); BUN/CREATININE RATIO 10.9 (5.4-32.0); CALCIUM 8.5 MG/DL (8.5-10.1); CHLORIDE 107 MMOL/L (99-107); CREATININE 0.92 MG/DL (0.60-1.10); GLUCOSE 91 MG/DL (70-104); MAGNESIUM 1.9 MG/DL (1.5-2.4); POTASSIUM 4.6 MMOL/L (3.5-5.1); SODIUM 140 MMOL/L (135-145); TOTAL CARBON DIOXIDE 30.9 MMOL/L (24-32); eGFR 86 ML/MIN
[2019-04-06] MEDS: K and/or MAG REPLACEMENT MC SCH ×2 (08:29→20:00)
[2019-04-06] MEDS: metoprolol tartrate 50mg tablet PO SCH ×2 (08:32→19:29)
[2019-04-06] MEDS: LORazepam 1 MG tablet PO PRN (08:33)
[2019-04-06 10:00] VITALS: BP 101/67
--- NOTE | 2019-04-06 12:54 | NUR ---
evonne 12oo accu check Addendum: 04/06/19 at 1254 by Thierno Shields RN Amended: Links added.
--- NOTE | 2019-04-06 12:59 | NUR ---
Thierno 5060 Re: cesar Palmer Can we stop accu checks? Pt bood sugars 80-100
--- NOTE | 2019-04-06 14:58 | NUR ---
Thierno 1761 Re: cesar Palmer Physical therapy recommending X-ray of Left humorous for possible further dislocation.
[2019-04-06 17:00] VITALS: BP 99/70
--- NOTE | 2019-04-06 18:38 | NUR ---
Problems reprioritized. Patient report given, questions answered & plan of care reviewed with Herve ORELLANA from PCU.
--- NOTE | 2019-04-06 18:55 | NUR ---
Patient in room ORTHO 4022B. I have received report from ESTEBAN Pa and had the opportunity to ask questions and assume patient care. Patient denies CP, dizziness, SOB, n/v, and rated pain 10/10. I informed patient that I can call Dr. Mahoney, patient liaison parminder, to have his Penelope administered every four hours instead of six hours. Patient refused stating that Penelope does not help him.
[2019-04-06 22:00] VITALS: BP 97/62
--- NOTE | 2019-04-07 04:48 | NUR ---
Page Dr. Mahoney: Page Sent promotional table spacer PAGER ID: [phone] MESSAGE: Fish Palmer Room # 4022B, Pt had two loose bowel movements tonight. Would you prescribe Imodium? Pls. advise Herve ext [phone] Ortho floor tonight
[2019-04-07 06:00] VITALS: BP 125/81
[2019-04-07 06:18] LABS: ALBUMIN 2.4 G/DL (3.4-5.0); ANION GAP 7 (8-16); BASOPHILS % (AUTO) 0.6 % (0-1); BLOOD UREA NITROGEN 10 MG/DL (7-18); BUN/CREATININE RATIO 11.8 (5.4-32.0); CALCIUM 8.4 MG/DL (8.5-10.1); CHLORIDE 105 MMOL/L (99-107); CREATININE 0.85 MG/DL (0.60-1.10); EOSINOPHILS % (AUTO) 0.7 % (0-6); GLUCOSE 103 MG/DL (70-104); HEMATOCRIT 29.2 % (42.0-52.0); HEMOGLOBIN 10.2 g/dl (14.0-17.9); LYMPHOCYTES # (AUTO) 0.6 X10'3 (1.1-4.8); LYMPHOCYTES % (AUTO) 16.8 % (21-51); MAGNESIUM 1.7 MG/DL (1.5-2.4); MEAN CORPUSCULAR VOLUME 91.4 FL (78-98); MEAN PLATELET VOLUME 7.6 FL (7.4-10.4); MONOCYTES # (AUTO) 0.4 X10'3 (0-0.9); MONOCYTES % (AUTO) 11.3 % (2-12); NEUTROPHILS # (AUTO) 2.7 X10'3 (1.8-7.7); NEUTROPHILS % (AUTO) 70.6 % (42-75); PLATELET COUNT 130 X10'3 (140-440); POTASSIUM 3.9 MMOL/L (3.5-5.1); RED CELL DISTRIBUTION WIDTH 15.3 % (11.5-14.5); SODIUM 139 MMOL/L (135-145); TOTAL CARBON DIOXIDE 27.2 MMOL/L (24-32); WHITE BLOOD COUNT 3.8 X10'3 (4.5-11.0); eGFR > 90 ML/MIN
--- NOTE | 2019-04-07 06:30 | NUR ---
Patient in room ORTHO 4022. I have received report from ESTEBAN Mai and had the opportunity to ask questions and assume patient care.
--- NOTE | 2019-04-07 06:37 | NUR ---
Problems reprioritized. Patient report given, questions answered & plan of care reviewed with ESTEBAN Simpson. Patient stable at shift change
[2019-04-07] MEDS: K and/or MAG REPLACEMENT MC SCH ×2 (08:00→20:00)
[2019-04-07] MEDS: HYDROcodone/acetaminophen 10/325mg tab PO PRN ×2 (09:41→20:07)
[2019-04-07 10:00] VITALS: BP 129/81
[2019-04-07] MEDS: metoprolol tartrate 50mg tablet PO SCH ×2 (11:34→20:07)
--- NOTE | 2019-04-07 14:31 | NUR ---
Initial: Pt admit s/p fall w/ humerus fx at home. Pt to f/u on outpatient basis following splint but refused to leave so admitted and currently refusing to leave bed requesting narcotics per MD note. Received one time thiamin IV for possible etoh. ERIC d/w RN regarding thiamin/folic/MVI per MD approval since etoh withdrawal protocol to start per MD note. Pt PO 100% meals meeting needs. LBM 04/06. No nutrition concerns at this time. Will continue to monitor. Rec: 1. continue regular diet 2. thiamin/folic/MVI for possible etoh per MD note 3. wt per rx Addendum: 04/07/19 at [address] Amended: Links added.
[2019-04-07 18:00] VITALS: BP 117/71
--- NOTE | 2019-04-07 18:30 | NUR ---
Problems reprioritized. Patient report given, questions answered & plan of care reviewed with ESTEBAN Hurst.
[2019-04-07 22:00] VITALS: BP 104/63
[2019-04-08] MEDS: HYDROcodone/acetaminophen 10/325mg tab PO PRN ×3 (03:14→15:38)
[2019-04-08 06:00] VITALS: BP 100/72
[2019-04-08] MEDS: K and/or MAG REPLACEMENT MC SCH (08:00)
[2019-04-08] MEDS: metoprolol tartrate 50mg tablet PO SCH (09:35)
[2019-04-08 10:00] VITALS: BP 113/78
[2019-04-08] MEDS ORDERED: TRAM50TA2 PO (13:16)
[2019-04-08] MEDS: LORazepam 1 MG tablet PO PRN (13:57)
--- NOTE | 2019-04-08 16:47 | NUR ---
Facilities Engineering Manager into see patient a few times today, regarding discharging back to his house.
== END 2019-04-08 17:30 | disposition home health service (06) | DRG 342 ==
LOC: ER 06:28 → ED HOLD 11:53 → ORTHO 4S 13:50
PROVIDERS: ADMIT Internal Medicine; ATTEND Internal Medicine
DX: S42.342A Displaced spiral fracture of shaft of humerus, left arm, initial encounter for closed fracture (principal); G62.1 Alcoholic polyneuropathy; I10 Essential (primary) hypertension; R26.89 Other abnormalities of gait and mobility; S42.192A Fracture of other part of scapula, left shoulder, initial encounter for closed fracture; Z60.2 Problems related to living alone; W01.0XXA Fall on same level from slipping, tripping and stumbling without subsequent striking against object, initial encounter; Z28.21 Immunization not carried out because of patient refusal; Z88.1 Allergy status to other antibiotic agents; Z89.411 Acquired absence of right great toe; Y93.89 Activity, other specified; Y92.091 Bathroom in other non-institutional residence as the place of occurrence of the external cause; Y99.8 Other external cause status
CPT/HCPCS: 36415; 73060; 80048; 80053; 82948; 83735; 85025; 87081; 96374; 96376; 97110; 97116; 97161; 97530; 99285; G0378; J2060; J2270; J3411; J7030; Q2037

== ENCOUNTER 2020-08-31 02:44 | Emergency (ER) | payer MEDICAID ==
[~2020-08-31] VITALS: Ht 193 cm; Wt 74.2 kg
[~2020-08-31 02:44] MED LIST changes: -ACET-1059; +TRAM50TA2 PO
[2020-08-31 02:50] VITALS: BP 113/82
[2020-08-31] MEDS ORDERED: LIDOcaine 1% W/epiNEPHrine 1:200,000 10ml vial IJ ONE (03:45)
[2020-08-31] MEDS ORDERED: clindamycin 150mg capsule PO ONE (03:55)
[2020-08-31] MEDS ORDERED: CLIN150C8 PO (04:10)
== END 2020-08-31 04:28 | disposition home or self-care (01) ==
LOC: ER 02:45
DX: K04.7 Periapical abscess without sinus (principal); G89.29 Other chronic pain; F12.90 Cannabis use, unspecified, uncomplicated; Z98.890 Other specified postprocedural states; Z72.89 Other problems related to lifestyle; Z60.2 Problems related to living alone; Z88.1 Allergy status to other antibiotic agents; Z79.2 Long term (current) use of antibiotics; Z79.899 Other long term (current) drug therapy
CPT/HCPCS: 41800; 99284

== ENCOUNTER 2023-04-16 10:25 | Emergency (ER) | payer MEDICAID ==
[~2023-04-16] VITALS: Ht 193 cm; Wt 78.2 kg
[~2023-04-16 10:25] MED LIST changes: +CLIN-214 PO
[2023-04-16 14:09] VITALS: BP 143/99; PULSE 108; RESP 16; TEMP 97.3; O2SAT 95
[2023-04-16] MEDS ORDERED: SODI30SP3 BOTHNARES (14:09)
[2023-04-16] MEDS ORDERED: DOXY-225 PO (14:09)
[2023-04-16] MEDS ORDERED: METO-384 PO (14:19)
== END 2023-04-16 14:24 | disposition home or self-care (01) ==
LOC: ER 10:25
DX: G62.9 Polyneuropathy, unspecified (principal); J32.2 Chronic ethmoidal sinusitis; Z79.2 Long term (current) use of antibiotics; Z79.899 Other long term (current) drug therapy; G89.29 Other chronic pain; W19.XXXA Unspecified fall, initial encounter; Y93.89 Activity, other specified; Y92.89 Other specified places as the place of occurrence of the external cause; Y99.8 Other external cause status; Z88.1 Allergy status to other antibiotic agents
CPT/HCPCS: 70450; 99284